=== PATIENT | female | born 1960 | race Caucasian/White ===

== ENCOUNTER → 2025-04-11 10:47 | Outpatient (REF) | payer OTHER, SELFPAY ==
[2025-04-11 18:45] LABS: Hepatitis B Surface Antibody Positive
[2025-04-12 12:15] LABS: Mumps Virus IgG Positive; Rubeola (Measles) IgG Positive; Varicella Zoster IgG (VZV) Positive
[2025-04-12 20:08] LABS: Rubella Positive
[2025-04-13 13:49] LABS: Quantiferon Mitogen minus NIL 9.95 IU/mL; Quantiferon NIL 0.05 IU/mL; Quantiferon TB Gold Plus Negative (Negative)
== END ==
LOC: OHS 10:47
PROVIDERS: ATTENDING PHYSICIAN Nurse Practitioner Family
DX: Z23 Encounter for immunization (principal)
CPT/HCPCS: 36415; 86480; 86706; 86735; 86762; 86765; 86787

== ENCOUNTER → 2025-04-11 16:52 | Outpatient (REF) | payer OTHER, SELFPAY | LOC: WDC 16:52 | PROVIDERS: ATTENDING PHYSICIAN Family Medicine | DX: Z12.31 Encounter for screening mammogram for malignant neoplasm of breast (principal) | CPT/HCPCS: 77063; 77067 ==